=== PATIENT | male | born 1995 | race Caucasian/White ===

== ENCOUNTER 2017-09-14 20:55 | Emergency (ER) | payer SELFPAY ==
[~2017-09-14] VITALS: Ht 185.4 cm; Wt 75.0 kg
[2017-09-14] MEDS ORDERED: KETOROLAC TROMETHAMINE 60 MG/2 ML VIAL IM ONE (21:45)
[2017-09-14 22:51] VITALS: BP 119/70
== END 2017-09-14 22:54 | disposition home or self-care (01) ==
LOC: EMS 21:01
DX: S93.402A Sprain of unspecified ligament of left ankle, initial encounter (principal); F17.210 Nicotine dependence, cigarettes, uncomplicated; W18.49XA Other slipping, tripping and stumbling without falling, initial encounter; Y93.51 Activity, roller skating (inline) and skateboarding; Y92.89 Other specified places as the place of occurrence of the external cause; Y99.8 Other external cause status
CPT/HCPCS: 99284; 99406; J1885